=== PATIENT | female | born 1975 | race Caucasian/White ===

== ENCOUNTER 2018-03-19 08:19 | Inpatient (IN) | payer SELFPAY ==
[~2018-03-19] VITALS: Ht 167.6 cm; Wt 71.2 kg
[2018-03-19 09:16] LABS: CLARITY URINE CLEAR (CLEAR); COLOR URINE YELLOW (YELLOW); KETONES URINE NEGATIVE (NEGATIVE); LEUKOCYTE ESTERASE URINE NEGATIVE (NEGATIVE); NITRITE URINE NEGATIVE (NEGATIVE); OCCULT BLOOD URINE NEGATIVE (NEGATIVE); PH URINE 6.5 (4.5-8.0); PROTEIN URINE NEGATIVE (NEGATIVE); SPECIFIC GRAVITY URINE 1.003 (1.005-1.030); UROBILINOGEN URINE 0.2 E.U./dL (0.2-1.0)
[2018-03-19] MEDS ORDERED: ASPIRIN 81MG TABLET PO STA (09:23)
[2018-03-19 10:06] LABS: BASOPHILS % 0.1 % (0.0-2.0); EOSINOPHILS % 0.3 % (0.0-5.0); HEMATOCRIT. 42.5 % (36.0-48.0); HEMOGLOBIN. 14.3 g/dL (12.0-16.0); LYMPHOCYTES % 17.6 % (20.0-50.0); MEAN CORPUSCULAR HEMOGLOBIN 31.8 pg (28.0-32.0); MEAN PLATELET VOLUME 8.3 fl (7.4-10.4); MONOCYTES % 4.2 % (2.0-8.0); NEUTROPHILS % 77.8 % (40.0-76.0); PLATELET 227 x1000/uL (130-400); RED BLOOD CELL COUNT 4.48 mill/uL (4.2-5.4); RED CELL DISTRIBUTION WIDTH 13.5 % (11.6-14.6)
[2018-03-19 10:13] LABS: CHLORIDE 106 mEq/L (98-107)
[2018-03-19] MEDS: NITROGLYCERIN 0.4MG TABLET SL SL PRN ×2 (10:13→10:25)
[2018-03-19 10:21] LABS: D-DIMER 0.23 mg/L FEU (<0.50); INR 1.1; PARTIAL THROMBOPLASTIN TIME 28.2 sec (23.4-31.0); PROTHROMBIN TIME 11.1 sec (9.4-11.6)
[2018-03-19 10:38] LABS: HCG SCREEN NEGATIVE
[2018-03-19] MEDS ORDERED: DOCUSATE SODIUM 100MG CAPSULE PO PRN (12:00)
[2018-03-19] MEDS ORDERED: MAGNESIUM/ALUMINUM HYDROXIDE/SIMETHICONE 30ML UDC PO PRN (12:00)
[2018-03-19] MEDS ORDERED: CLONIDINE 0.1MG TABLET PO PRN (12:00)
[2018-03-19] MEDS ORDERED: HYDROCODONE/ACETAMINOPHEN 5/325MG TABLET PO PRN (12:00)
[2018-03-19] MEDS ORDERED: ACETAMINOPHEN 325MG TABLET PO PRN (12:00)
[2018-03-19] MEDS ORDERED: ONDANSETRON HCL 4MG/2ML VIAL IV PRN (12:00)
[2018-03-19] MEDS ORDERED: HYDROMORPHONE HCL/PF 2MG/ML CPJ IV PRN (12:00)
[2018-03-19] MEDS ORDERED: GUAIFENESIN 200MG/10ML SUGAR FREE UDC PO PRN (12:00)
[2018-03-19] MEDS ORDERED: IPRATROPIUM/ALBUTEROL 0.5-3(2.5)MG/3ML NEB INH PRN (12:00)
[2018-03-19] MEDS ORDERED: NA PHOS,M-B/NA PHOS,DI-BA ENEMA 118ML PR PRN (12:00)
[2018-03-19] MEDS ORDERED: DIPHENHYDRAMINE 50MG/ML VIAL IV PRN (12:00)
[2018-03-19 13:30] VITALS: BP_SYST 139; BP_SYST 143; BP_DIAS 71; BP_DIAS 92
[2018-03-19] MEDS: ENOXAPARIN 40MG/0.4ML SYR SUBCUT SCH (13:37)
[2018-03-19] MEDS ORDERED: IBUP-1653 PO (14:13)
[2018-03-19] MEDS: NICOTINE 21MG PATCH TD SCH (14:54)
[2018-03-19 15:51] LABS: CHLORIDE 107 mEq/L (98-107)
[2018-03-19 16:30] VITALS: BP 139/92
[2018-03-19] MEDS: LORAZEPAM 2MG/ML CPJ IV PRN ×2 (17:20→21:57)
[2018-03-19 20:00] VITALS: BP 137/92
[2018-03-19] MEDS ORDERED: ZOLPIDEM TARTRATE 5MG TABLET PO PRN (21:00)
[2018-03-20] VITALS: BP 102/67
[2018-03-20 04:00] VITALS: BP 113/73
[2018-03-20 05:05] VITALS: BP 113/73
[2018-03-20 07:02] LABS: BASOPHILS % 0.2 % (0.0-2.0); EOSINOPHILS % 1.2 % (0.0-5.0); HEMATOCRIT. 43.1 % (36.0-48.0); HEMOGLOBIN. 14.4 g/dL (12.0-16.0); LYMPHOCYTES % 30.2 % (20.0-50.0); MEAN CORPUSCULAR HEMOGLOBIN 32.1 pg (28.0-32.0); MEAN CORPUSCULAR VOLUME 96.6 fL (81.0-99.0); MEAN PLATELET VOLUME 9.5 fl (7.4-10.4); MONOCYTES % 6.6 % (2.0-8.0); NEUTROPHILS % 61.8 % (40.0-76.0); PLATELET 195 x1000/uL (130-400); RED BLOOD CELL COUNT 4.47 mill/uL (4.2-5.4); RED CELL DISTRIBUTION WIDTH 13.8 % (11.6-14.6)
[2018-03-20 07:45] VITALS: BP 127/80
[2018-03-20] MEDS: NICOTINE 21MG PATCH TD SCH (08:00)
[2018-03-20] MEDS: ENOXAPARIN 40MG/0.4ML SYR SUBCUT SCH (08:00)
[2018-03-20] MEDS ORDERED: ASPIRIN 81MG EC TABLET PO SCH (09:00)
[2018-03-20 09:01] LABS: CHLORIDE 110 mEq/L (98-107)
[2018-03-20 09:10] LABS: LDL CHOLESTEROL 71 mg/dL (5-100)
[2018-03-20 09:11] LABS: HDL CHOLESTEROL 44 mg/dL (40-59); T4 FREE 1.12 ng/dL (0.76-1.46)
[2018-03-20 09:56] VITALS: BP 127/80
== END 2018-03-20 10:38 | disposition home or self-care (01) | DRG 203 ==
LOC: ER 10:30 → 8WST 11:46 → EDBEDREQ 11:47 → ENRESERV 12:09
PROVIDERS: ADMIT Internal Medicine; ATTEND Internal Medicine
DX: R07.9 Chest pain, unspecified (principal); F41.9 Anxiety disorder, unspecified; F17.200 Nicotine dependence, unspecified, uncomplicated; Z82.41 Family history of sudden cardiac death; Z82.49 Family history of ischemic heart disease and other diseases of the circulatory system; Z90.710 Acquired absence of both cervix and uterus
CPT/HCPCS: 36415; 71045; 80048; 80053; 80061; 81003; 84439; 84443; 84484; 84703; 85025; 85379; 85610; 85730; 93005; 99285; J1650; J2060

== ENCOUNTER 2018-04-07 16:54 | Emergency (ER) | payer SELFPAY ==
[~2018-04-07 16:54] MED LIST: IBUP-1653 PO
== END 2018-04-07 20:45 | disposition left against medical advice (07) ==
LOC: ER 16:54
DX: M54.5 Low back pain (principal); Z53.21 Procedure and treatment not carried out due to patient leaving prior to being seen by health care provider

== ENCOUNTER 2022-09-18 23:16 | Emergency (ER) | payer MEDICARE, MEDICAID ==
[~2022-09-18] VITALS: Ht 167.6 cm; Wt 53.9 kg
[2022-09-19 03:34] VITALS: BP 135/90
== END 2022-09-19 03:36 | disposition home or self-care (01) ==
LOC: ER 23:16
DX: R04.0 Epistaxis (principal); Z88.5 Allergy status to narcotic agent; Z98.890 Other specified postprocedural states
CPT/HCPCS: 99281

== ENCOUNTER 2023-07-27 23:09 | Inpatient (IN) | payer MEDICARE, MEDICAID ==
[~2023-07-27] VITALS: Ht 162.6 cm; Wt 49.9 kg
[2023-07-27] MEDS ORDERED: NOREPINEPHRINE 8MG/250ML PMX 250 ML IV STA (23:33)
[2023-07-27] MEDS ORDERED: MORPHINE SULFATE 4 MG/ML CPJ (NOT FOR IM USE) IV STA (23:33)
[2023-07-27] MEDS ORDERED: ONDANSETRON HCL 4MG/2ML INJ IV STA (23:33)
[2023-07-27] MEDS ORDERED: PIPERACILLIN/TAZ 3.375G PREMIX 50 ML IV ONE (23:45)
[2023-07-27] MEDS ORDERED: SODIUM CHLORIDE 0.9% 1000ML BAG (SEPSIS BOLUS) IV ONE (23:45)
[2023-07-27] MEDS ORDERED: HYDROCORTISONE SOD SUCCINATE 100 MG/2 ML VIAL IV ONE (23:45)
[2023-07-27] MEDS ORDERED: VANCOMYCIN 1G PREMIX 200 ML IV ONE (23:45)
[2023-07-28] VITALS (31 sets, daily range): BP systolic 82–113; BP diastolic 41–92; PULSE 92–124; RESP 10–41; TEMP 97.5–98.3
[2023-07-28 00:01] LABS: BG BASE EXCESS -3.5 mmol/L (-2.0-2.0); BG CARBOXYHEMOGLOBIN 0.3 % (0.5-1.5); BG DEOXYHEMOGLOBIN 11.3 % (0.0-5.0); BG FRACTION INSPIRED OXYGEN 21; BG HCO3 ACT 19.4 mmol/L (22.0-26.0); BG METHEMOGLOBIN 0.3 % (0.0-1.5); BG OXYGEN SATURATION 88.6 % (92.0-98.5); BG OXYHEMOGLOBIN 88.1 % (94.0-97.0); BG PH 7.459 (7.350-7.450); BG PO2 54.5 mmHg (75.0-100.0); BG SAMPLE SITE RIGHT RADIAL; BG TOTAL HEMOGLOBIN 9.9 g/dL (12.0-18.0); BG VENT MODE ROOM AIR
[2023-07-28 00:19] LABS: HEMATOCRIT. 30.9 % (36.0-48.0); HEMOGLOBIN. 9.5 g/dL (12.0-16.0); MEAN CORPUSCULAR HEMOGLOBIN 28.8 pg (28.0-32.0); MEAN CORPUSCULAR HGB CONC 30.7 g/dL (31.0-37.0); MEAN PLATELET VOLUME 7.3 fl (7.4-10.4); PLATELET 247 x1000/uL (130-400); RED BLOOD CELL COUNT 3.29 mill/uL (4.2-5.4); RED CELL DISTRIBUTION WIDTH 24.4 % (11.6-14.6); WHITE BLOOD COUNT 8.3 x1000/uL (4.5-11.0)
[2023-07-28 00:25] LABS: CHLORIDE 98 mEq/L (98-107); INDEX HEMOLYSI 1 (1-3); INDEX ICTERIC 3 (1-4); INDEX LIPEMIC 1 (1-3); POTASSIUM 3.2 mEq/L (3.5-5.1); SODIUM 131 mEq/L (136-145)
[2023-07-28 00:30] LABS: AMMONIA 18 uMol/L (<32)
[2023-07-28 00:31] LABS: INR 1.6; PROTHROMBIN TIME 16.3 sec (9.6-11.0)
[2023-07-28 00:35] LABS: ALANINE AMINOTRANSFERASE 51 IU/L (13-61); ALBUMIN 1.3 g/dL (3.4-5.0); ASPARTATE AMINOTRANSFERASE 75 IU/L (15-37); BILIRUBIN TOTAL 8.4 mg/dL (0.1-1.0); CALCIUM 8.5 mg/dL (8.5-10.1); CARBON DIOXIDE 20 mEq/L (21-32); PROTEIN TOTAL 5.1 g/dL (6.0-8.3); TROPONIN I HIGH SENSITIVITY 24 ng/L (<54); UREA NITROGEN BLOOD 17 mg/dL (7-21)
[2023-07-28 00:49] LABS: GLUCOSE 40 mg/dL (70-105); LACTIC ACID 7.4 mmol/L (0.4-2.0)
[2023-07-28 00:54] LABS: DIFFERENTIAL COMMENT 1
[2023-07-28] MEDS ORDERED: DEXT 10% WATER 1,000 ML IV ONE (01:00)
[2023-07-28] MEDS ORDERED: DEXTROSE 50% WATER 50ML SYRINGE IV NR ×2 (01:00→17:00)
[2023-07-28 01:14] LABS: HCG SCREEN NEGATIVE
[2023-07-28 03:16] LABS: CLARITY URINE CLOUDY (CLEAR); COLOR URINE DARK YELLOW (YELLOW); GLUCOSE URINE NEGATIVE (NEGATIVE); KETONES URINE NEGATIVE (NEGATIVE); LEUKOCYTE ESTERASE URINE 1+ (NEGATIVE); NITRITE URINE POSITIVE (NEGATIVE); OCCULT BLOOD URINE NEGATIVE (NEGATIVE); PROTEIN URINE 2+ (NEGATIVE); SPECIFIC GRAVITY URINE 1.022 (1.005-1.030)
[2023-07-28 03:19] LABS: RBC URINE 0-2 /hpf (0-2); SQUAMOUS EPITHELIAL CELL URINE NONE SEEN /lpf (RARE/1+); YEAST URINE NONE SEEN
[2023-07-28 03:36] LABS: BACTERIA URINE TRACE
[2023-07-28 05:23] LABS: ANISOCYTOSIS 1+; PLATELET ESTIMATE NORMAL
[2023-07-28] MEDS ORDERED: DOCUSATE SODIUM 100MG CAPSULE PO PRN (11:15)
[2023-07-28] MEDS ORDERED: ONDANSETRON HCL 4MG/2ML INJ IV PRN (11:15)
[2023-07-28] MEDS ORDERED: IPRATROPIUM/ALBUTEROL 0.5-3(2.5)MG/3ML NEB HHN PRN ×2 (11:15→16:30)
[2023-07-28] MEDS ORDERED: LORAZEPAM 0.5MG TABLET PO PRN (11:15)
[2023-07-28] MEDS ORDERED: CLONIDINE 0.1MG TABLET PO PRN (11:15)
[2023-07-28] MEDS ORDERED: ACETAMINOPHEN 325MG TABLET PO PRN ×2 (11:15)
[2023-07-28] MEDS ORDERED: AZITHROMYCIN 500 MG TABLET PO NR (12:30)
[2023-07-28] MEDS ORDERED: PANT40TA51 PO (13:00)
[2023-07-28] MEDS ORDERED: APIX5TAB MT (13:02)
[2023-07-28] MEDS ORDERED: HYDR10TA MT (13:05)
[2023-07-28] MEDS ORDERED: LEVO150T8 PO (13:07)
[2023-07-28] MEDS ORDERED: FLUD0.1T MT (13:09)
[2023-07-28] MEDS ORDERED: NOREPINEPHRINE 8 MG in DEXT 5% WATER 242 ML IV PRN (13:15)
[2023-07-28] MEDS: PIPERACILLIN/TAZOBACTAM 3.375 G in DEXTROSE 5% WATER 50 ML IV SCH ×2 (13:28→21:56)
[2023-07-28] MEDS: VANCOMYCIN 750MG PREMIX 150 ML IV SCH (13:28)
[2023-07-28] MEDS: MIDODRINE HCL 5MG TABLET PO SCH ×2 (13:28→21:57)
[2023-07-28] MEDS: NOREPINEPHRINE 8MG/250ML PMX 250ML IV PRN (15:40)
[2023-07-28] MEDS ORDERED: NALOXONE HCL 0.4MG/ML VIAL IV PRN (15:45)
[2023-07-28 16:26] LABS: BG BASE EXCESS -8.8 mmol/L (-2.0-2.0); BG CARBOXYHEMOGLOBIN 0.5 % (0.5-1.5); BG HCO3 ACT 16.3 mmol/L (22.0-26.0); BG METHEMOGLOBIN 0.1 % (0.0-1.5); BG OXYGEN SATURATION 87.9 % (92.0-98.5); BG OXYHEMOGLOBIN 87.4 % (94.0-97.0); BG PCO2 32.5 mmHg (35.0-45.0); BG PH 7.318 (7.350-7.450); BG PO2 58.6 mmHg (75.0-100.0); BG SAMPLE SITE RIGHT RADIAL; BG TOTAL HEMOGLOBIN 11.4 g/dL (12.0-18.0); BG VENT MODE NASAL CANNULA
[2023-07-28] MEDS ORDERED: KETAMINE HCL 50 MG/ML 10ML IV NR (16:30)
[2023-07-28] MEDS ORDERED: HYDROCORTISONE SOD SUCCINATE 100 MG/2 ML VIAL IV NR (17:00)
[2023-07-28 18:10] LABS: BG BASE EXCESS -7.4 mmol/L (-2.0-2.0); BG CARBOXYHEMOGLOBIN 0.1 % (0.5-1.5); BG DEOXYHEMOGLOBIN 0.2 % (0.0-5.0); BG HCO3 ACT 18.6 mmol/L (22.0-26.0); BG METHEMOGLOBIN 0.1 % (0.0-1.5); BG OXYGEN SATURATION 99.8 % (92.0-98.5); BG OXYHEMOGLOBIN 99.6 % (94.0-97.0); BG PCO2 39.8 mmHg (35.0-45.0); BG PH 7.288 (7.350-7.450); BG PO2 322.6 mmHg (75.0-100.0); BG SAMPLE SITE ALINE; BG TOTAL HEMOGLOBIN 10.1 g/dL (12.0-18.0); BG VENT MODE VENT - AC
[2023-07-28] MEDS ORDERED: SODIUM BICARBONATE 8.4% 1 MEQ/ML 50ML SYR IV NR (18:30)
[2023-07-28] MEDS ORDERED: PROPOFOL 10MG/ML 100ML 100 ML IV PRN (20:00)
[2023-07-28] MEDS: IPRATROPIUM/ALBUTEROL 0.5-3(2.5)MG/3ML NEB HHN SCH (20:49)
[2023-07-28] MEDS: HYDROCORTISONE SOD SUCCINATE 100 MG/2 ML VIAL IV SCH (21:57)
[2023-07-28 23:14] LABS: BG BASE EXCESS -0.8 mmol/L (-2.0-2.0); BG CARBOXYHEMOGLOBIN 0.3 % (0.5-1.5); BG DEOXYHEMOGLOBIN 0.5 % (0.0-5.0); BG FRACTION INSPIRED OXYGEN 100; BG HCO3 ACT 22.7 mmol/L (22.0-26.0); BG METHEMOGLOBIN 0.3 % (0.0-1.5); BG OXYGEN SATURATION 99.5 % (92.0-98.5); BG OXYHEMOGLOBIN 98.9 % (94.0-97.0); BG PCO2 33.4 mmHg (35.0-45.0); BG PH 7.451 (7.350-7.450); BG PO2 350.3 mmHg (75.0-100.0); BG SAMPLE SITE ALINE; BG TOTAL HEMOGLOBIN 9.8 g/dL (12.0-18.0); BG VENT MODE VENT - AC
[2023-07-29] VITALS (95 sets, daily range): BP systolic 84–128; BP diastolic 59–82; PULSE 82–118; RESP 0–34; TEMP 98.2–98.8
[2023-07-29] MEDS: IPRATROPIUM/ALBUTEROL 0.5-3(2.5)MG/3ML NEB HHN SCH ×6 (00:14→20:32)
[2023-07-29] MEDS: VANCOMYCIN 750MG PREMIX 150 ML IV SCH (01:20)
[2023-07-29] MEDS: NOREPINEPHRINE 8MG/250ML PMX 250ML IV PRN ×2 (05:39→23:16)
[2023-07-29] MEDS: PIPERACILLIN/TAZOBACTAM 3.375 G in DEXTROSE 5% WATER 50 ML IV SCH ×3 (05:41→22:11)
[2023-07-29] MEDS: HYDROCORTISONE SOD SUCCINATE 100 MG/2 ML VIAL IV SCH (05:41)
[2023-07-29 06:32] LABS: HEMATOCRIT. 27.5 % (36.0-48.0); MEAN CORPUSCULAR HEMOGLOBIN 28.5 pg (28.0-32.0); MEAN CORPUSCULAR HGB CONC 32.7 g/dL (31.0-37.0); MEAN CORPUSCULAR VOLUME 87.3 fL (81.0-99.0); MEAN PLATELET VOLUME 8.8 fl (7.4-10.4); PLATELET 95 x1000/uL (130-400); RED BLOOD CELL COUNT 3.15 mill/uL (4.2-5.4); RED CELL DISTRIBUTION WIDTH 23.8 % (11.6-14.6)
[2023-07-29 06:37] LABS: POTASSIUM 3.4 mEq/L (3.5-5.1)
[2023-07-29 06:43] LABS: CALCIUM 7.7 mg/dL (8.5-10.1); CREATININE 1.4 mg/dL (0.6-1.3)
[2023-07-29] MEDS: MORPHINE SULFATE 2 MG/ML CPJ (NOT FOR IM USE) IV PRN ×2 (06:48→23:23)
[2023-07-29] MEDS: MIDODRINE HCL 5MG TABLET PO SCH ×3 (06:49→22:12)
[2023-07-29 07:08] LABS: DIFFERENTIAL COMMENT 1; WHITE BLOOD COUNT 44.2 x1000/uL (4.5-11.0)
[2023-07-29 09:37] LABS: TOXIC GRANULATION 2+; TOXIC VACUOLATION 2+
[2023-07-29 09:40] LABS: ANISOCYTOSIS 3+; PLATELET ESTIMATE DECREASED
[2023-07-29] MEDS: AZITHROMYCIN 250 MG TABLET PO SCH (10:08)
[2023-07-29] MEDS ORDERED: PNEUMOCOCCAL 23-VAL P-SAC VAC 0.5 ML IM ONE (10:30)
[2023-07-29] MEDS ORDERED: INFLUENZA VACCINE 05/PF 0.5 ML SYRINGE IM ONE (10:30)
[2023-07-29 10:35] LABS: BG BASE EXCESS -2.4 mmol/L (-2.0-2.0); BG CARBOXYHEMOGLOBIN 0.3 % (0.5-1.5); BG DEOXYHEMOGLOBIN 0.7 % (0.0-5.0); BG FRACTION INSPIRED OXYGEN 60; BG HCO3 ACT 20.7 mmol/L (22.0-26.0); BG METHEMOGLOBIN 0.3 % (0.0-1.5); BG OXYGEN SATURATION 99.3 % (92.0-98.5); BG OXYHEMOGLOBIN 98.7 % (94.0-97.0); BG PCO2 29.7 mmHg (35.0-45.0); BG PH 7.462 (7.350-7.450); BG PO2 151.2 mmHg (75.0-100.0); BG SAMPLE SITE ALINE; BG TOTAL HEMOGLOBIN 9.3 g/dL (12.0-18.0); BG VENT MODE VENT - AC
[2023-07-29] MEDS ORDERED: KCL 20MEQ/100ML PREMIX 100 ML IV NR (11:45)
[2023-07-29] MEDS: PANTOPRAZOLE SODIUM 40 MG/VIAL IV SCH (11:58)
[2023-07-29] MEDS: DEXT 5%/0.9% NACL 1,000 ML IV SCH (12:00)
[2023-07-29 12:03] LABS: *AMPHETAMINES SCREEN URINE NEGATIVE (NEGATIVE); *BARBITURATES SCREEN URINE NEGATIVE (NEGATIVE); *BENZODIAZEPINES SCREEN URINE NEGATIVE (NEGATIVE); *COCAINE SCREEN URINE NEGATIVE (NEGATIVE); CANNABINOID URINE SCREEN NEGATIVE (NEGATIVE); ECSTASY MDMA SCREEN URINE NEGATIVE (NEGATIVE); PHENCYCLIDINE URINE SCREEN NEGATIVE (NEGATIVE)
[2023-07-29 12:13] LABS: OPIATES URINE SCREEN PRESUMTIVE POSITIVE (NEGATIVE)
[2023-07-29 12:24] LABS: HEPATITIS B SURFACE ANTIGEN NEGATIVE
[2023-07-29] MEDS ORDERED: VANCOMYCIN 750MG PREMIX 150 ML IV NR (18:00)
[2023-07-29] MEDS ORDERED: PROPOFOL 10MG/ML 100ML 100 ML IV PRN (22:15)
[2023-07-30] VITALS (99 sets, daily range): BP systolic 88–117; BP diastolic 53–74; PULSE 82–99; RESP 0–35; TEMP 97.5–99; O2SAT 100
[2023-07-30] MEDS: IPRATROPIUM/ALBUTEROL 0.5-3(2.5)MG/3ML NEB HHN SCH ×6 (00:26→19:55)
[2023-07-30] MEDS: DEXT 5%/0.9% NACL 1,000 ML IV SCH ×2 (01:13→09:37)
[2023-07-30] MEDS: MIDODRINE HCL 5MG TABLET PO SCH ×3 (05:35→21:35)
[2023-07-30] MEDS: PIPERACILLIN/TAZOBACTAM 3.375 G in DEXTROSE 5% WATER 50 ML IV SCH ×2 (05:35→13:14)
[2023-07-30 08:33] LABS: BG CARBOXYHEMOGLOBIN 0.3 % (0.5-1.5); BG DEOXYHEMOGLOBIN 0.7 % (0.0-5.0); BG FRACTION INSPIRED OXYGEN 60; BG HCO3 ACT 22.6 mmol/L (22.0-26.0); BG METHEMOGLOBIN 0.3 % (0.0-1.5); BG OXYGEN SATURATION 99.3 % (92.0-98.5); BG OXYHEMOGLOBIN 98.7 % (94.0-97.0); BG PCO2 32.6 mmHg (35.0-45.0); BG PH 7.459 (7.350-7.450); BG PO2 180.8 mmHg (75.0-100.0); BG SAMPLE SITE ALINE; BG TOTAL HEMOGLOBIN 7.7 g/dL (12.0-18.0); BG VENT MODE VENT - AC
[2023-07-30 09:30] LABS: HEMATOCRIT 23.4 % (36.0-48.0); HEMOGLOBIN 7.4 g/dL (12.0-16.0); MEAN CORPUSCULAR HEMOGLOBIN 27.9 pg (28.0-32.0); MEAN CORPUSCULAR HGB CONC 31.8 g/dL (31.0-37.0); MEAN CORPUSCULAR VOLUME 87.7 fL (81.0-99.0); PLATELET 57 x1000/uL (130-400); RED BLOOD CELL COUNT 2.67 mill/uL (4.2-5.4); RED CELL DISTRIBUTION WIDTH 23.4 % (11.6-14.6)
[2023-07-30 09:32] LABS: POTASSIUM 3.3 mEq/L (3.5-5.1); WHITE BLOOD COUNT 22.2 x1000/uL (4.5-11.0)
[2023-07-30 09:34] LABS: CALCIUM 7.4 mg/dL (8.5-10.1)
[2023-07-30] MEDS: AZITHROMYCIN 250 MG TABLET PO SCH (09:37)
[2023-07-30] MEDS: PANTOPRAZOLE SODIUM 40 MG/VIAL IV SCH (09:37)
[2023-07-30 09:39] LABS: CREATININE 1.6 mg/dL (0.6-1.3); PHOSPHORUS 3.9 mg/dL (2.5-4.9)
[2023-07-30] MEDS ORDERED: POTASSIUM CHLORIDE INJ 40 MEQ in DEXT 5% WATER 500 ML IV NR (11:00)
[2023-07-30] MEDS ORDERED: HYDROCORTISONE 10MG TABLET NG SCH (13:00)
[2023-07-30 13:12] LABS: INR 1.2; PARTIAL THROMBOPLASTIN TIME 32.8 sec (23.4-31.0); PROTHROMBIN TIME 12.9 sec (9.6-11.0)
[2023-07-30] MEDS: FLUDROCORTISONE ACETATE 0.1MG TABLET NG SCH (13:13)
[2023-07-30] MEDS: LEVOTHYROXINE SODIUM 150MCG TABLET NG SCH (13:13)
[2023-07-30] MEDS ORDERED: IOHEXOL-350 100 ML BOTTLE ONE (13:47)
[2023-07-30] MEDS: NOREPINEPHRINE 8MG/250ML PMX 250ML IV PRN (19:27)
[2023-07-30] MEDS: CEFTRIAXONE 2 G in DEXTROSE 5% WATER 50 ML IV SCH (20:45)
[2023-07-31] VITALS (97 sets, daily range): BP systolic 80–108; BP diastolic 37–64; PULSE 93–127; RESP 0–30; TEMP 98.6–100
[2023-07-31] MEDS: IPRATROPIUM/ALBUTEROL 0.5-3(2.5)MG/3ML NEB HHN SCH ×5 (00:31→20:51)
[2023-07-31] MEDS: MIDODRINE HCL 5MG TABLET PO SCH ×3 (05:43→21:44)
[2023-07-31 06:30] LABS: INR 1.2; PROTHROMBIN TIME 12.5 sec (9.6-11.0)
[2023-07-31 06:33] LABS: HEMATOCRIT. 21.5 % (36.0-48.0); HEMOGLOBIN. 7.1 g/dL (12.0-16.0); MEAN CORPUSCULAR HEMOGLOBIN 29.3 pg (28.0-32.0); MEAN CORPUSCULAR HGB CONC 33.3 g/dL (31.0-37.0); MEAN CORPUSCULAR VOLUME 88.1 fL (81.0-99.0); MEAN PLATELET VOLUME 10.4 fl (7.4-10.4); PLATELET 59 x1000/uL (130-400); RED BLOOD CELL COUNT 2.44 mill/uL (4.2-5.4); RED CELL DISTRIBUTION WIDTH 23.6 % (11.6-14.6); WHITE BLOOD COUNT 15.6 x1000/uL (4.5-11.0)
[2023-07-31 06:39] LABS: POTASSIUM 3.5 mEq/L (3.5-5.1)
[2023-07-31 06:48] LABS: CALCIUM 7.3 mg/dL (8.5-10.1); CREATININE 1.5 mg/dL (0.6-1.3)
[2023-07-31 07:03] LABS: DIFFERENTIAL COMMENT 1
[2023-07-31 08:46] LABS: BG BASE EXCESS -2.9 mmol/L (-2.0-2.0); BG CARBOXYHEMOGLOBIN 0.3 % (0.5-1.5); BG DEOXYHEMOGLOBIN 1.8 % (0.0-5.0); BG FRACTION INSPIRED OXYGEN 40; BG METHEMOGLOBIN 0.2 % (0.0-1.5); BG OXYGEN SATURATION 98.2 % (92.0-98.5); BG OXYHEMOGLOBIN 97.7 % (94.0-97.0); BG PCO2 33.3 mmHg (35.0-45.0); BG PH 7.417 (7.350-7.450); BG PO2 123.1 mmHg (75.0-100.0); BG SAMPLE SITE ALINE; BG TOTAL HEMOGLOBIN 10.7 g/dL (12.0-18.0); BG VENT MODE VENT - AC
[2023-07-31] MEDS: PANTOPRAZOLE SODIUM 40 MG/VIAL IV SCH (08:46)
[2023-07-31] MEDS: LEVOTHYROXINE SODIUM 150MCG TABLET NG SCH (08:46)
[2023-07-31] MEDS: FLUDROCORTISONE ACETATE 0.1MG TABLET NG SCH (08:47)
[2023-07-31] MEDS: AZITHROMYCIN 250 MG TABLET PO SCH (08:47)
[2023-07-31] MEDS ORDERED: SODIUM BICARBONATE 4% (2.4MEQ) 5ML VIAL IV ONE (09:24)
[2023-07-31] MEDS: PROPOFOL 10MG/ML 100ML 100 ML IV PRN (10:18)
[2023-07-31 13:58] LABS: BG CARBOXYHEMOGLOBIN 0.3 % (0.5-1.5); BG DEOXYHEMOGLOBIN 1.3 % (0.0-5.0); BG FRACTION INSPIRED OXYGEN 40; BG HCO3 ACT 19.4 mmol/L (22.0-26.0); BG METHEMOGLOBIN 0.3 % (0.0-1.5); BG OXYGEN SATURATION 98.7 % (92.0-98.5); BG OXYHEMOGLOBIN 98.1 % (94.0-97.0); BG PCO2 29.2 mmHg (35.0-45.0); BG PH 7.441 (7.350-7.450); BG PO2 140.6 mmHg (75.0-100.0); BG SAMPLE SITE ALINE; BG TOTAL HEMOGLOBIN 8.4 g/dL (12.0-18.0); BG VENT MODE VENT - CPAP
[2023-07-31 14:11] LABS: ANISOCYTOSIS 2+; PLATELET ESTIMATE MARKEDLY DECREASED
[2023-07-31] MEDS: CEFTRIAXONE 2 G in DEXTROSE 5% WATER 50 ML IV SCH (18:15)
[2023-07-31] MEDS: DEXT 5%/0.9% NACL 1,000 ML IV SCH (18:17)
[2023-08-01] VITALS (94 sets, daily range): BP systolic 86–122; BP diastolic 45–74; PULSE 103–121; RESP 8–25; TEMP 98.3–100.3
[2023-08-01] MEDS: NOREPINEPHRINE 8MG/250ML PMX 250ML IV PRN (03:35)
[2023-08-01] MEDS: IPRATROPIUM/ALBUTEROL 0.5-3(2.5)MG/3ML NEB HHN SCH ×7 (04:00→21:30)
[2023-08-01] MEDS: PROPOFOL 10MG/ML 100ML 100 ML IV PRN (05:12)
[2023-08-01] MEDS: MIDODRINE HCL 5MG TABLET PO SCH ×3 (05:13→21:04)
[2023-08-01 05:38] LABS: POTASSIUM 3.1 mEq/L (3.5-5.1)
[2023-08-01 05:39] LABS: HEMATOCRIT. 21.7 % (36.0-48.0); MEAN CORPUSCULAR HEMOGLOBIN 28.2 pg (28.0-32.0); MEAN CORPUSCULAR HGB CONC 32.2 g/dL (31.0-37.0); MEAN CORPUSCULAR VOLUME 87.5 fL (81.0-99.0); MEAN PLATELET VOLUME 9.4 fl (7.4-10.4); PLATELET 56 x1000/uL (130-400); RED BLOOD CELL COUNT 2.48 mill/uL (4.2-5.4); RED CELL DISTRIBUTION WIDTH 22.9 % (11.6-14.6); WHITE BLOOD COUNT 15.1 x1000/uL (4.5-11.0)
[2023-08-01] MEDS: DEXT 5%/0.9% NACL 1,000 ML IV SCH (05:55)
[2023-08-01 06:03] LABS: CALCIUM 7.7 mg/dL (8.5-10.1); CREATININE 1.6 mg/dL (0.6-1.3)
[2023-08-01 06:29] LABS: DIFFERENTIAL COMMENT 1
[2023-08-01 08:58] LABS: BG BASE EXCESS -2.1 mmol/L (-2.0-2.0); BG CARBOXYHEMOGLOBIN 0.5 % (0.5-1.5); BG DEOXYHEMOGLOBIN 0.8 % (0.0-5.0); BG FRACTION INSPIRED OXYGEN 40; BG HCO3 ACT 21.8 mmol/L (22.0-26.0); BG METHEMOGLOBIN 0.3 % (0.0-1.5); BG OXYGEN SATURATION 99.2 % (92.0-98.5); BG OXYHEMOGLOBIN 98.4 % (94.0-97.0); BG PCO2 33.5 mmHg (35.0-45.0); BG PH 7.432 (7.350-7.450); BG PO2 170.1 mmHg (75.0-100.0); BG SAMPLE SITE ALINE; BG TOTAL HEMOGLOBIN 7.8 g/dL (12.0-18.0); BG TOTAL RESPIRATORY RATE 21 b/min; BG VENT MODE VENT - AC
[2023-08-01] MEDS: AZITHROMYCIN 250 MG TABLET PO SCH (09:00)
[2023-08-01] MEDS ORDERED: POTASSIUM CHLORIDE INJ 40 MEQ in DEXT 5% WATER 500 ML IV NR (09:00)
[2023-08-01] MEDS: PANTOPRAZOLE SODIUM 40 MG/VIAL IV SCH (09:13)
[2023-08-01] MEDS: LEVOTHYROXINE SODIUM 150MCG TABLET NG SCH (09:14)
[2023-08-01] MEDS: FLUDROCORTISONE ACETATE 0.1MG TABLET NG SCH (09:14)
[2023-08-01] MEDS ORDERED: LIDOCAINE HCL 1% 10 MG/ML 10ML VIAL ONE (13:38)
[2023-08-01 14:14] LABS: AMMONIA < 10 uMol/L (<32)
[2023-08-01 15:35] LABS: ANISOCYTOSIS 2+; PLATELET ESTIMATE MARKEDLY DECREASED
[2023-08-01] MEDS: BLOOD SUGAR DIAGNOSTIC STRIP TEST SCH ×3 (17:50→20:59)
[2023-08-01] MEDS: CEFTRIAXONE 2 G in DEXTROSE 5% WATER 50 ML IV SCH (17:56)
[2023-08-01 20:32] LABS: HEMATOCRIT 26.2 % (36.0-48.0); HEMOGLOBIN 8.5 g/dL (12.0-16.0)
[2023-08-01 20:41] LABS: POTASSIUM 3.4 mEq/L (3.5-5.1)
[2023-08-01] MEDS ORDERED: KCL 20MEQ/100ML PREMIX 100 ML IV NR (23:00)
[2023-08-02] VITALS (97 sets, daily range): BP systolic 78–111; BP diastolic 42–84; PULSE 104–125; RESP 14–29; TEMP 98–100.7
[2023-08-02] MEDS: IPRATROPIUM/ALBUTEROL 0.5-3(2.5)MG/3ML NEB HHN SCH ×3 (00:41→08:00)
[2023-08-02] MEDS: NOREPINEPHRINE 8MG/250ML PMX 250ML IV PRN ×3 (03:28→23:42)
[2023-08-02 05:49] LABS: HEMATOCRIT. 25.9 % (36.0-48.0); HEMOGLOBIN. 8.2 g/dL (12.0-16.0); MEAN CORPUSCULAR HEMOGLOBIN 27.3 pg (28.0-32.0); MEAN CORPUSCULAR HGB CONC 31.8 g/dL (31.0-37.0); PLATELET 60 x1000/uL (130-400); RED BLOOD CELL COUNT 3.01 mill/uL (4.2-5.4); RED CELL DISTRIBUTION WIDTH 24.3 % (11.6-14.6); WHITE BLOOD COUNT 12.3 x1000/uL (4.5-11.0)
[2023-08-02 05:55] LABS: CHLORIDE 111 mEq/L (98-107); INDEX HEMOLYSI 3 (1-3); INDEX ICTERIC 2 (1-4); INDEX LIPEMIC 1 (1-3); POTASSIUM 3.8 mEq/L (3.5-5.1); SODIUM 139 mEq/L (136-145)
[2023-08-02 06:02] LABS: ALBUMIN 1.1 g/dL (3.4-5.0); CALCIUM 8.1 mg/dL (8.5-10.1); CARBON DIOXIDE 24 mEq/L (21-32); CREATININE 1.8 mg/dL (0.6-1.3); GLUCOSE 75 mg/dL (70-105); UREA NITROGEN BLOOD 25 mg/dL (7-21)
[2023-08-02] MEDS: BLOOD SUGAR DIAGNOSTIC STRIP TEST SCH ×3 (06:05→18:00)
[2023-08-02] MEDS: MIDODRINE HCL 5MG TABLET PO SCH ×3 (06:20→21:44)
[2023-08-02 06:41] LABS: DIFFERENTIAL COMMENT 1
[2023-08-02] MEDS: LEVOTHYROXINE SODIUM 150MCG TABLET NG SCH (07:50)
[2023-08-02 08:44] LABS: BG BASE EXCESS -6.3 mmol/L (-2.0-2.0); BG DEOXYHEMOGLOBIN 1.6 % (0.0-5.0); BG FRACTION INSPIRED OXYGEN 30; BG HCO3 ACT 17.3 mmol/L (22.0-26.0); BG METHEMOGLOBIN 0.2 % (0.0-1.5); BG OXYGEN SATURATION 98.4 % (92.0-98.5); BG OXYHEMOGLOBIN 98.2 % (94.0-97.0); BG PCO2 27.8 mmHg (35.0-45.0); BG PH 7.413 (7.350-7.450); BG PO2 131.5 mmHg (75.0-100.0); BG SAMPLE SITE ALINE; BG TOTAL HEMOGLOBIN 8.7 g/dL (12.0-18.0); BG TOTAL RESPIRATORY RATE 24 b/min; BG VENT MODE VENT - AC
[2023-08-02] MEDS ORDERED: ENOXAPARIN 40MG/0.4ML SYR SUBCUT SCH (09:00)
[2023-08-02 09:23] LABS: PREALBUMIN < 3.0 mg/dL (20.0-40.0)
[2023-08-02] MEDS: PANTOPRAZOLE SODIUM 40 MG/VIAL IV SCH (09:38)
[2023-08-02] MEDS: FLUDROCORTISONE ACETATE 0.1MG TABLET NG SCH (09:38)
[2023-08-02] MEDS: DEXTROSE 50% WATER 50ML SYRINGE IV PRN (11:19)
[2023-08-02] MEDS ORDERED: ACETAMINOPHEN 650MG/20.3ML UDC PO PRN (11:30)
[2023-08-02 12:39] LABS: PLATELET ESTIMATE DECREASED
[2023-08-02 12:41] LABS: ANISOCYTOSIS 2+
[2023-08-02] MEDS ORDERED: ASPIRIN 81MG TABLET PO SCH (13:30)
[2023-08-02] MEDS ORDERED: IPRATROPIUM/ALBUTEROL 0.5-3(2.5)MG/3ML NEB HHN PRN (13:45)
[2023-08-02] MEDS: CEFTRIAXONE 2 G in DEXTROSE 5% WATER 50 ML IV SCH (18:04)
[2023-08-03] VITALS (110 sets, daily range): BP systolic 52–116; BP diastolic 23–90; PULSE 94–120; RESP 17–29; TEMP 98.4–99.5
[2023-08-03] MEDS: DEXTROSE 50% WATER 50ML SYRINGE IV PRN (00:31)
[2023-08-03] MEDS: MIDODRINE HCL 5MG TABLET PO SCH ×3 (05:53→21:33)
[2023-08-03] MEDS: BLOOD SUGAR DIAGNOSTIC STRIP TEST SCH ×4 (06:00→18:23)
[2023-08-03 06:23] LABS: HEMATOCRIT. 27.3 % (36.0-48.0); HEMOGLOBIN. 8.8 g/dL (12.0-16.0); MEAN CORPUSCULAR HEMOGLOBIN 27.2 pg (28.0-32.0); MEAN CORPUSCULAR HGB CONC 32.2 g/dL (31.0-37.0); MEAN CORPUSCULAR VOLUME 84.6 fL (81.0-99.0); MEAN PLATELET VOLUME 8.6 fl (7.4-10.4); PLATELET 80 x1000/uL (130-400); RED BLOOD CELL COUNT 3.23 mill/uL (4.2-5.4); RED CELL DISTRIBUTION WIDTH 24.3 % (11.6-14.6); WHITE BLOOD COUNT 14.4 x1000/uL (4.5-11.0)
[2023-08-03] MEDS: NOREPINEPHRINE 8MG/250ML PMX 250ML IV PRN (06:37)
[2023-08-03 06:46] LABS: DIFFERENTIAL COMMENT 1
[2023-08-03 07:37] LABS: CHLORIDE 114 mEq/L (98-107); INDEX HEMOLYSI 1 (1-3); INDEX ICTERIC 2 (1-4); INDEX LIPEMIC 1 (1-3); POTASSIUM 3.6 mEq/L (3.5-5.1); SODIUM 141 mEq/L (136-145)
[2023-08-03 07:45] LABS: ALANINE AMINOTRANSFERASE 26 IU/L (13-61); ALBUMIN 1.1 g/dL (3.4-5.0); ASPARTATE AMINOTRANSFERASE 50 IU/L (15-37); BILIRUBIN TOTAL 3.8 mg/dL (0.1-1.0); CALCIUM 8.3 mg/dL (8.5-10.1); CARBON DIOXIDE 19 mEq/L (21-32); CREATININE 1.9 mg/dL (0.6-1.3); GLUCOSE 96 mg/dL (70-105); UREA NITROGEN BLOOD 33 mg/dL (7-21)
[2023-08-03] MEDS: PANTOPRAZOLE SODIUM 40 MG/VIAL IV SCH (08:32)
[2023-08-03] MEDS: FLUDROCORTISONE ACETATE 0.1MG TABLET NG SCH (08:33)
[2023-08-03] MEDS: LEVOTHYROXINE SODIUM 150MCG TABLET NG SCH (08:33)
[2023-08-03] MEDS: ASPIRIN 81MG TABLET PO SCH (08:33)
[2023-08-03 10:24] LABS: BG BASE EXCESS -7.4 mmol/L (-2.0-2.0); BG CARBOXYHEMOGLOBIN 0.5 % (0.5-1.5); BG DEOXYHEMOGLOBIN 1.8 % (0.0-5.0); BG FRACTION INSPIRED OXYGEN 30; BG HCO3 ACT 16.5 mmol/L (22.0-26.0); BG METHEMOGLOBIN 0.3 % (0.0-1.5); BG OXYGEN SATURATION 98.2 % (92.0-98.5); BG OXYHEMOGLOBIN 97.4 % (94.0-97.0); BG PCO2 28.2 mmHg (35.0-45.0); BG PH 7.384 (7.350-7.450); BG PO2 113.1 mmHg (75.0-100.0); BG SAMPLE SITE ALINE; BG TOTAL HEMOGLOBIN 10.3 g/dL (12.0-18.0); BG VENT MODE VENT - AC
[2023-08-03 10:41] LABS: ANISOCYTOSIS 2+; PLATELET ESTIMATE SLIGHTLY DECREASED
[2023-08-03] MEDS: DEXT 10% WATER 1,000 ML IV SCH (11:56)
[2023-08-03] MEDS: IPRATROPIUM/ALBUTEROL 0.5-3(2.5)MG/3ML NEB HHN SCH ×2 (12:00→20:36)
[2023-08-03] MEDS ORDERED: KCL 20MEQ/100ML PREMIX 100 ML IV NR (12:00)
[2023-08-03 12:23] LABS: BG BASE EXCESS -7.9 mmol/L (-2.0-2.0); BG CARBOXYHEMOGLOBIN 0.3 % (0.5-1.5); BG DEOXYHEMOGLOBIN 2.3 % (0.0-5.0); BG FRACTION INSPIRED OXYGEN 30; BG HCO3 ACT 15.7 mmol/L (22.0-26.0); BG METHEMOGLOBIN 0.3 % (0.0-1.5); BG OXYGEN SATURATION 97.7 % (92.0-98.5); BG OXYHEMOGLOBIN 97.1 % (94.0-97.0); BG PCO2 26.5 mmHg (35.0-45.0); BG PH 7.391 (7.350-7.450); BG PO2 111.7 mmHg (75.0-100.0); BG SAMPLE SITE ALINE; BG TOTAL HEMOGLOBIN 10.4 g/dL (12.0-18.0); BG VENT MODE VENT - CPAP
[2023-08-03] MEDS: NOREPINEPHRINE 8 MG in DEXTROSE 5% WATER 250 ML IV PRN ×2 (14:09→19:00)
[2023-08-03] MEDS ORDERED: VANCOMYCIN 1G PREMIX 200 ML IV NR (18:00)
[2023-08-03] MEDS: CEFEPIME 2,000 MG in DEXT 5% WATER 100 ML IV SCH (18:25)
[2023-08-04] VITALS (100 sets, daily range): PULSE 91–112; RESP 15–36; TEMP 97.6–97.8
[2023-08-04] MEDS: BLOOD SUGAR DIAGNOSTIC STRIP TEST SCH ×4 (00:09→18:00)
[2023-08-04] MEDS: IPRATROPIUM/ALBUTEROL 0.5-3(2.5)MG/3ML NEB HHN SCH ×4 (01:03→20:16)
[2023-08-04] MEDS: NOREPINEPHRINE 8 MG in DEXTROSE 5% WATER 250 ML IV PRN ×2 (03:56→15:13)
[2023-08-04 05:17] LABS: HEMOGLOBIN. 8.1 g/dL (12.0-16.0); MEAN CORPUSCULAR HEMOGLOBIN 27.5 pg (28.0-32.0); MEAN CORPUSCULAR HGB CONC 32.3 g/dL (31.0-37.0); MEAN CORPUSCULAR VOLUME 85.3 fL (81.0-99.0); MEAN PLATELET VOLUME 9.1 fl (7.4-10.4); PLATELET 84 x1000/uL (130-400); RED BLOOD CELL COUNT 2.93 mill/uL (4.2-5.4); RED CELL DISTRIBUTION WIDTH 23.7 % (11.6-14.6); WHITE BLOOD COUNT 15.5 x1000/uL (4.5-11.0)
[2023-08-04 05:20] LABS: POTASSIUM 3.9 mEq/L (3.5-5.1)
[2023-08-04 05:25] LABS: CALCIUM 8.1 mg/dL (8.5-10.1)
[2023-08-04] MEDS: MIDODRINE HCL 5MG TABLET PO SCH ×3 (05:53→22:01)
[2023-08-04 05:55] LABS: DIFFERENTIAL COMMENT 1
[2023-08-04] MEDS: ASPIRIN 81MG TABLET PO SCH (08:40)
[2023-08-04] MEDS: LEVOTHYROXINE SODIUM 150MCG TABLET NG SCH (08:40)
[2023-08-04] MEDS: FLUDROCORTISONE ACETATE 0.1MG TABLET NG SCH (08:40)
[2023-08-04] MEDS: ENOXAPARIN 30MG/0.3ML SYR SUBCUT SCH (08:42)
[2023-08-04] MEDS: PANTOPRAZOLE SODIUM 40 MG/VIAL IV SCH (09:00)
[2023-08-04 09:02] LABS: BG BASE EXCESS -8.3 mmol/L (-2.0-2.0); BG CARBOXYHEMOGLOBIN 0.1 % (0.5-1.5); BG DEOXYHEMOGLOBIN 1.3 % (0.0-5.0); BG FRACTION INSPIRED OXYGEN 40; BG HCO3 ACT 15.8 mmol/L (22.0-26.0); BG METHEMOGLOBIN 0.2 % (0.0-1.5); BG OXYGEN SATURATION 98.7 % (92.0-98.5); BG OXYHEMOGLOBIN 98.4 % (94.0-97.0); BG PCO2 27.5 mmHg (35.0-45.0); BG PH 7.376 (7.350-7.450); BG PO2 153.8 mmHg (75.0-100.0); BG SAMPLE SITE ALINE; BG VENT MODE VENT - SIMV
[2023-08-04 10:34] LABS: ANISOCYTOSIS 2+; PLATELET ESTIMATE DECREASED
[2023-08-04] MEDS: DEXT 10% WATER 1,000 ML IV SCH (13:53)
[2023-08-04] MEDS: DEXTROSE 50% WATER 50ML SYRINGE IV PRN (14:07)
[2023-08-04 14:44] LABS: BG BASE EXCESS -8.3 mmol/L (-2.0-2.0); BG CARBOXYHEMOGLOBIN 0.1 % (0.5-1.5); BG DEOXYHEMOGLOBIN 2.1 % (0.0-5.0); BG FRACTION INSPIRED OXYGEN 30; BG METHEMOGLOBIN 0.1 % (0.0-1.5); BG OXYGEN SATURATION 97.9 % (92.0-98.5); BG OXYHEMOGLOBIN 97.7 % (94.0-97.0); BG PCO2 28.4 mmHg (35.0-45.0); BG PH 7.368 (7.350-7.450); BG SAMPLE SITE ALINE; BG TOTAL HEMOGLOBIN 8.5 g/dL (12.0-18.0); BG VENT MODE VENT - CPAP
[2023-08-04] MEDS: CEFEPIME 2,000 MG in DEXT 5% WATER 100 ML IV SCH (17:30)
[2023-08-04] MEDS ORDERED: VANCOMYCIN 750MG PREMIX 150 ML IV SCH (18:00)
[2023-08-04] MEDS ORDERED: DEXT 10% WATER 1,000 ML IV SCH (21:00)
[2023-08-05] VITALS (69 sets, daily range): BP systolic 66; BP diastolic 28; PULSE 0–124; RESP 0–40; TEMP 98.2–99.9
[2023-08-05] MEDS ORDERED: DEXT 5%/0.9% NACL 1,000 ML IV SCH
[2023-08-05] MEDS: IPRATROPIUM/ALBUTEROL 0.5-3(2.5)MG/3ML NEB HHN SCH ×3 (00:06→12:40)
[2023-08-05] MEDS ORDERED: CHLORPROMAZINE HCL 25 MG TABLET NG PRN (00:30)
[2023-08-05] MEDS: DEXTROSE 50% WATER 50ML SYRINGE IV PRN (00:44)
[2023-08-05 05:52] LABS: HEMATOCRIT. 22.4 % (36.0-48.0); HEMOGLOBIN. 7.1 g/dL (12.0-16.0); MEAN CORPUSCULAR HEMOGLOBIN 27.2 pg (28.0-32.0); MEAN CORPUSCULAR HGB CONC 31.8 g/dL (31.0-37.0); MEAN CORPUSCULAR VOLUME 85.5 fL (81.0-99.0); MEAN PLATELET VOLUME 8.9 fl (7.4-10.4); PLATELET 75 x1000/uL (130-400); RED BLOOD CELL COUNT 2.62 mill/uL (4.2-5.4); RED CELL DISTRIBUTION WIDTH 23.4 % (11.6-14.6); WHITE BLOOD COUNT 12.4 x1000/uL (4.5-11.0)
[2023-08-05 06:00] LABS: CALCIUM 7.6 mg/dL (8.5-10.1); CREATININE 2.3 mg/dL (0.6-1.3)
[2023-08-05] MEDS: BLOOD SUGAR DIAGNOSTIC STRIP TEST SCH ×4 (06:00→18:00)
[2023-08-05 06:16] LABS: DIFFERENTIAL COMMENT 1
[2023-08-05] MEDS: MIDODRINE HCL 5MG TABLET PO SCH ×2 (06:51→13:30)
[2023-08-05] MEDS: NOREPINEPHRINE 8 MG in DEXTROSE 5% WATER 250 ML IV PRN (06:51)
[2023-08-05] MEDS: ENOXAPARIN 30MG/0.3ML SYR SUBCUT SCH (09:00)
[2023-08-05] MEDS: ASPIRIN 81MG TABLET PO SCH (09:17)
[2023-08-05] MEDS: PANTOPRAZOLE SODIUM 40 MG/VIAL IV SCH (09:17)
[2023-08-05] MEDS: LEVOTHYROXINE SODIUM 150MCG TABLET NG SCH (09:17)
[2023-08-05] MEDS: FLUDROCORTISONE ACETATE 0.1MG TABLET NG SCH (09:17)
[2023-08-05 10:47] LABS: ANISOCYTOSIS 2+; PLATELET ESTIMATE DECREASED
[2023-08-05] MEDS ORDERED: VANCOMYCIN 500MG PREMIX 100 ML IV SCH (12:00)
[2023-08-05] MEDS ORDERED: MORPHINE SULFATE 2 MG/ML CPJ (NOT FOR IM USE) IV PRN (12:45)
[2023-08-05] MEDS ORDERED: MORPHINE SULFATE 2 MG/ML CPJ (NOT FOR IM USE) IV NR (13:00)
[2023-08-05] MEDS ORDERED: MORPHINE SULFATE 250 MG in DEXT 5% WATER 225 ML IV PRN (13:15)
[2023-08-05] MEDS: CEFEPIME 2,000 MG in DEXT 5% WATER 100 ML IV SCH (17:00)
== END 2023-08-05 22:00 | DRG 870 ==
LOC: ER 23:09 → MICUSO 07-28 02:42 → EDBEDREQ 07-28 02:44 → EDBEDREQTM 07-28 02:44 → 5EST 07-28 11:15 → CVICU 07-28 15:17
PROVIDERS: ADMIT Internal Medicine; ATTEND Internal Medicine
PROC: 5A1955Z Respiratory Ventilation, Greater than 96 Consecutive Hours (ICD-10-PCS; principal; 2023-07-28)
PROC: 0BH17EZ Insertion of Endotracheal Airway into Trachea, Via Natural or Artificial Opening (ICD-10-PCS; 2023-07-28)
PROC: 04HY32Z Insertion of Monitoring Device into Lower Artery, Percutaneous Approach (ICD-10-PCS; 2023-07-28)
PROC: 06HY33Z Insertion of Infusion Device into Lower Vein, Percutaneous Approach (ICD-10-PCS; 2023-07-28)
PROC: 0BH17EZ Insertion of Endotracheal Airway into Trachea, Via Natural or Artificial Opening (ICD-10-PCS; 2023-07-29)
PROC: 0W9930Z Drainage of Right Pleural Cavity with Drainage Device, Percutaneous Approach (ICD-10-PCS; 2023-07-31)
PROC: 05HY33Z Insertion of Infusion Device into Upper Vein, Percutaneous Approach (ICD-10-PCS; 2023-08-01)
PROC: B54MZZA Ultrasonography of Right Upper Extremity Veins, Guidance (ICD-10-PCS; 2023-08-01)
PROC: 30233N1 Transfusion of Nonautologous Red Blood Cells into Peripheral Vein, Percutaneous Approach (ICD-10-PCS; 2023-08-01)
DX: A41.59 Other Gram-negative sepsis (principal); E43 Unspecified severe protein-calorie malnutrition; J18.9 Pneumonia, unspecified organism; J96.01 Acute respiratory failure with hypoxia; R65.21 Severe sepsis with septic shock; N17.0 Acute kidney failure with tubular necrosis; G93.41 Metabolic encephalopathy; I63.9 Cerebral infarction, unspecified; C34.90 Malignant neoplasm of unspecified part of unspecified bronchus or lung; C78.7 Secondary malignant neoplasm of liver and intrahepatic bile duct; C78.5 Secondary malignant neoplasm of large intestine and rectum; E72.20 Disorder of urea cycle metabolism, unspecified; N39.0 Urinary tract infection, site not specified; E87.1 Hypo-osmolality and hyponatremia; E87.20 Acidosis, unspecified; I82.411 Acute embolism and thrombosis of right femoral vein; D68.9 Coagulation defect, unspecified; I82.431 Acute embolism and thrombosis of right popliteal vein; I96 Gangrene, not elsewhere classified; Z68.1 Body mass index [BMI] 19.9 or less, adult; I82.A12 Acute embolism and thrombosis of left axillary vein; I82.622 Acute embolism and thrombosis of deep veins of left upper extremity; J91.8 Pleural effusion in other conditions classified elsewhere; E87.3 Alkalosis; Z66 Do not resuscitate; K72.90 Hepatic failure, unspecified without coma; F41.9 Anxiety disorder, unspecified; E87.6 Hypokalemia; E16.2 Hypoglycemia, unspecified; D64.9 Anemia, unspecified; J98.4 Other disorders of lung; R91.8 Other nonspecific abnormal finding of lung field; L89.156 Pressure-induced deep tissue damage of sacral region; Z20.822 Contact with and (suspected) exposure to COVID-19; D69.6 Thrombocytopenia, unspecified; E03.9 Hypothyroidism, unspecified; N18.9 Chronic kidney disease, unspecified; Z51.5 Encounter for palliative care; Z82.49 Family history of ischemic heart disease and other diseases of the circulatory system; Z90.5 Acquired absence of kidney; Z86.718 Personal history of other venous thrombosis and embolism; Z86.73 Personal history of transient ischemic attack (TIA), and cerebral infarction without residual deficits; Z90.710 Acquired absence of both cervix and uterus; Z88.5 Allergy status to narcotic agent; Z85.528 Personal history of other malignant neoplasm of kidney
CPT/HCPCS: 31500; 32555; 36415; 36573; 36600; 70551; 71045; 71275; 74176; 76770; 80048; 80053; 80202; 80305; 81003; 82040; 82140; 82375; 82550; 82805; 82962; 83605; 83735; 84100; 84132; 84134; 84145; 84478; 84484; 84703; 85014; 85018; 85025; 85027; 85362; 85379; 85384; 86803; 86850; 86900; 86920; 87070; 87077; 87106; 87186; 87340; 87426; 93005; 93306; 93880; 93923; 93970; 94002; 94003; 94640; 99291; A6261; C1725; C9113; J0692; J0696; J1650; J1720; J2270; J2405; J2543; J2704; J3370; J3480; J3490; J7030; J7042; J7060; P9016; Q0161; Q9967; A4315